=== PATIENT | female | born 1995 | race Two or more races ===

== ENCOUNTER 2024-04-26 12:28 | Inpatient (IN) | payer MEDICAID ==
[~2024-04-26] VITALS: Ht 157 cm; Wt 105.7 kg
[2024-04-26 10:36] LABS: Basophils # (auto) 0.1 10 ^3/uL (0-0.2); Basophils % (auto) 0.5 % (0.0-2.0); Eosinophils # (auto) 0.1 10 ^3/uL (0-0.8); Eosinophils % (auto) 0.6 % (0.0-7.0); Hematocrit 37.4 % (36.0-46.0); Hemoglobin 13.2 g/dL (12.2-16.2); Lymphocytes # (auto) 2.1 10 ^3/uL (0.4-5.4); Lymphocytes % (auto) 19.1 % (10.0-50.0); Mean Corpuscular Hgb Conc. 35.3 g/dL (32.0-36.0); Mean Corpuscular Volume 84.9 fL (80.0-100.0); Monocytes # (auto) 0.5 10 ^3/uL (0-1.3); Monocytes % (auto) 4.4 % (0.0-12.0); Neutrophils # (auto) 8.1 10 ^3/uL (1.6-8.6); Neutrophils % (auto) 75.4 % (37.0-80.0); Platelet Count (auto) 185 10^3/uL (140-450); Red Cell Distribution Width 13.5 % (11.8-14.3); White Blood Cell 10.7 10^3/uL (4.4-10.8)
[2024-04-26 10:50] LABS: Alkaline Phosphatase 111 U/L (46-116); Anion Gap 7 (5-15); Aspartate Aminotransferase 13 U/L (13-40); BUN/Creatinine Ratio 15.9 (10.0-20.0); Blood Urea Nitrogen 11 mg/dL (9-23); Calcium 9.5 mg/dL (8.7-10.4); Carbon Dioxide 21 mmol/L (20-31); Chloride 108 mmol/L (98-107); Glucose 75 mg/dL (74-106); Potassium 3.8 mmol/L (3.5-5.1); Sodium 136 mmol/L (136-145)
[2024-04-26 10:51] LABS: Albumin 3.9 g/dL (3.2-4.8); Bilirubin, Total 0.7 mg/dL (0.2-1.0)
[2024-04-26 11:19] LABS: Alanine Aminotransferase < 9 U/L (7-40)
[2024-04-26 11:26] LABS: Urine Bacteria FEW /hpf (None Seen); Urine Blood Negative /uL (Negative); Urine Clarity Turbid (Clear); Urine Color Yellow (Yellow); Urine Protein, UAD TRACE (Negative); Urine Specific Gravity 1.018 (1.001-1.035); Urine Urobilinogen Normal (Negative); Urine WBC 5 /hpf (0 - 5)
[2024-04-26 11:33] LABS: Amphetamine Screen, Urine Neg (NEGATIVE); Barbiturate Scree,Urine Neg (NEGATIVE); Benzodiazephine Screen, Urine Neg (NEGATIVE); Cannabinoid Screen, Urine Neg (NEGATIVE); Cocaine Screen, Urine Neg (NEGATIVE); Opiate Scree,Urine Neg (NEGATIVE); Phencyclidine Screen, Urine Neg (NEGATIVE)
[2024-04-27] VITALS (15 sets, daily range): BP systolic 106–135; BP diastolic 66–85; PULSE 18–94; RESP 11–20; TEMP 98.2–98.5; O2SAT 93–100
[2024-04-27] MEDS: LACTATED RINGER'S 1,000 ML IV ONE (06:03)
[2024-04-27] MEDS: LACTATED RINGER'S 1,000 ML IV SCH (06:03)
[2024-04-27 06:16] LABS: INR 1.07 (0.9-1.15); Prothrombin Time 11.3 sec (9.3-11.8)
[2024-04-27] MEDS ORDERED: SODIUM CITR/CITRIC ACID ORAL SOLN 30 ML PO SCH (06:30)
[2024-04-27] MEDS ORDERED: TETRACAINE 1% INJ 2 ML VIAL IJ ONE (07:22)
[2024-04-27] MEDS: ceFAZolin 2 GM/D5W50ml 50 ML IV ONE (07:23)
[2024-04-27] MEDS ORDERED: MORPHINE SULF PF 5 MG/10 ML VIAL ONE (07:27)
[2024-04-27] MEDS ORDERED: fentaNYL CITRATE 100 MCG/2 ML VL ONE (07:27)
[2024-04-27] MEDS ORDERED: MIDAZOLAM HCL 2MG/2ML 2ml VIAL (1mg/ml) ONE (07:28)
--- NOTE | 2024-04-27 07:29 | DVHHP ---
ADMIT DATE: 04/27/2024 CHIEF COMPLAINT: Scheduled repeat section with bilateral tubal ligation. HISTORY OF PRESENT ILLNESS: This is a 28-year-old female 3, para 2, estimated due date 05/04/2024. The patient is 39 weeks' gestation, history of 2 prior sections, desires repeat. The patient is requesting voluntary female sterilization. The patient denies any symptoms of labor. PAST MEDICAL HISTORY: Negative. PAST SURGICAL HISTORY: Two C-sections. MEDICATIONS: vitamins. ALLERGIES: No known drug allergies. SOCIAL HISTORY: She is . Denies any tobacco, alcohol or illicit drug use. FAMILY HISTORY: Negative and noncontributory. REVIEW OF SYSTEMS: Fourteen point review of systems is negative as otherwise stated in the HPI. PHYSICAL EXAMINATION: VITAL SIGNS: Stable. GENERAL: She is alert, appears her stated age. She is in no acute distress. HEENT: Normal. CARDIOVASCULAR: Regular rate and rhythm. PULMONARY: Clear to auscultation bilaterally. ABDOMEN: Gravid, soft, nontender, obese. EXTREMITIES: Without cyanosis or edema. PELVIC: Deferred. heart rate: Baseline 130s, moderate variability, no decelerations, [place], no contractions. DIAGNOSTIC FINDINGS: The patient is a Rh negative, rubella immune, hepatitis B negative, RPR negative, HIV negative. ASSESSMENT: * Term intrauterine 39 weeks, previous section x2, desires repeat. * Multiparity, requesting voluntary female sterilization. * Rh negative, unsensitized. PLAN: The patient will be admitted for routine repeat section with bilateral tubal ligation. The risks, benefits and alternatives to surgery have been discussed with the patient and informed consent has been obtained. Risk of sterilization including 1% failure rate discussed with the patient. She understands the procedure is permanent and nonreversible. DO JACKSON Soria TID: [id number] RECEIPT: [id number]
[2024-04-27] MEDS ORDERED: oxyTOCIN 10 UNIT/ML 10ML VIAL ONE (07:52)
[2024-04-27] MEDS ORDERED: ONDANSETRON HCL 4 MG/2 ML VIAL IV ONE (09:00)
[2024-04-27] MEDS ORDERED: NALOXONE HCL 0.4 MG/ML VIAL IV PRN (09:00)
[2024-04-27] MEDS ORDERED: hydrALAZINE HCL 20 MG/ML VL IV PRN (09:00)
[2024-04-27] MEDS ORDERED: DexAMETHasone SOD PHOS 10MG/1ML VIAL INJ IV PRN (09:00)
[2024-04-27] MEDS ORDERED: MIDAZOLAM HCL 2MG/2ML 2ml VIAL (1mg/ml) IV PRN (09:00)
[2024-04-27] MEDS ORDERED: ePHEDrine SULFATE 50 MG/ML AMP IV PRN (09:00)
[2024-04-27] MEDS ORDERED: ONDANSETRON HCL 4 MG/2 ML VIAL IV PRN (09:00)
[2024-04-27] MEDS ORDERED: HYDROmorphone HCL 2 MG/ML VL/or syr IV PRN (09:00)
--- NOTE | 2024-04-27 09:02 | DVHOP ---
DATE OF SURGERY: 04/27/2024 POSTOPERATIVE DIAGNOSES: * Term intrauterine 39 weeks. * Previous section x2, desires repeat. * Multiparity, requesting voluntary sterilization. FINAL DIAGNOSES: * Term intrauterine 39 weeks. * Previous section x2, desires repeat. * Multiparity, requesting voluntary sterilization. PROCEDURE PERFORMED: * Repeat low transverse section via Pfannenstiel skin incision. * Modified Castillo bilateral tubal ligation. SURGEON: Santosh Cassidy DO [employer] OPERATOR: Thiago Rowell NP TYPE OF ANESTHESIA: Spinal. ANESTHESIOLOGIST: Demario Salgado MD. DESCRIPTION OF FINDINGS: Delivery of a liveborn male infant, cephalic presentation, clear amniotic fluid, scores of 9 and 9, weight 7 pounds 0 ounces. Normal bilateral fallopian tubes, uterus and placenta. A single layer uterine closure. Minimal omental adhesions to anterior abdominal wall. TECHNICAL PROCEDURE: After informed consent was obtained, the patient was taken to the operating room where her spinal anesthesia was found to be adequate. She was placed in the supine position with a slight leftward tilt. She was sterilely prepped and draped in the usual sterile fashion. A Pfannenstiel skin incision was made through the prior scar. The incision was carried down sharply to the underlying layer of fascia and peritoneum. Entry into the peritoneal cavity was performed bluntly. The peritoneal incision was extended superiorly and inferiorly with good visualization of bladder and underlying organs. Omental adhesions were encountered that were divided with electrocautery. Next, the lower uterine segment was identified, it was incised in a low transverse fashion with the second scalpel and the incision extended laterally using digital technique. The amniotic membranes were ruptured. The fluid was slightly meconium tinged. The baby was delivered. After delivery of the infant, the nose and mouth were suctioned. The cord was clamped and cut after 60 seconds and the baby handed off to waiting pediatric team. Cord blood was obtained. The placenta was then manually removed. The uterus was exteriorized and cleared of all clots and debris using moist laparotomy sponges. The uterine incision was repaired with #1 PDS in continuous running locking fashion in a single layer. Excellent tissue approximation and hemostasis was obtained. Next, the left fallopian tube was found. It was traced to its fimbriated end. It was grasped at the mid isthmic portion with a Jack clamp and tied with 2 ties of 0 plain gut and a midsegment partial salpingectomy performed. The cut ends were cauterized. The procedure was repeated on the contralateral fallopian tube in similar fashion. Both left and right fallopian tube segments were submitted to pathology. There was no bleeding from the mesosalpinx. The uterus was returned to the abdomen. The cul-de-sac and pericolic gutters were cleared of all clots and debris. The abdomen was irrigated with sterile water. Hemostasis was confirmed. All instrumentation was removed from the patient's abdomen. We then proceeded to close the rectus fascia using #1 Stratafix symmetric suture in a continuous running fashion with 2 sutures meeting in the midline. Good tissue approximation was obtained. The subcutaneous tissue was irrigated. Bleeding points controlled with cautery. The subcutaneous tissue was closed with 2-0 plain gut and the skin was closed in subcuticular fashion using 3-0 Monocryl on a Joel needle. A silk dressing was then placed over the incision. INTRAOPERATIVE COMPLICATIONS: None. ESTIMATED BLOOD LOSS: 600 mL. POSTOPERATIVE CONDITION: Stable. SPECIMENS: Placenta, segments of left and right fallopian tubes. MEDICATIONS: The patient received 2 grams of Ancef prior to skin incision and IV Pitocin at the time of cord clamp. DO JACKSON Soria TID: [id number] RECEIPT: [id number]
[2024-04-27] MEDS: ACETAMINOPHEN IV 1000 MG/100ML (10MG/ML) IV PRN (15:19)
[2024-04-27] MEDS ORDERED: PHENYLEPHRINE HCL 10 MG/ML VL IV ONE (15:35)
[2024-04-27] MEDS: ceFAZolin 1GM/50ML 50 ML IV SCH (16:11)
[2024-04-27] MEDS: KETOROLAC TROMETH 30 MG/ML 1ML VIAL IV PRN (21:10)
[2024-04-28] VITALS (12 sets, daily range): BP systolic 103–126; BP diastolic 64–85; PULSE 61–76; RESP 14–18; TEMP 97.8–98.3; O2SAT 93–100
--- NOTE | 2024-04-28 00:30 | DVHPN2 ---
Progress Note Date Seen: Apr 28, 2024 Subjective POD#1 s/p RCS and BTL at 39 wk S: Doing well, No pain. Lochia mild. Tolerating regular diet. FLATUS+ vital signs Vital Sign Date Time Temp Pulse Resp B/P (MAP) Pulse Ox O2 Delivery O2 Flow Rate FiO2 04/28/24 00:00 66 18 96 04/27/24 23:00 98.2 122/78 (93) 98.2 04/27/24 19:00 Room Air 04/27/24 08:50 5.0 04/27/24 08:50 100 Total Intake and Output 04/27/24 04/27/24 04/28/24 15:00 23:00 07:00 Intake Total 1200 ml 325 ml Output Total 1000 ml 1225 ml 200 ml Balance -1000 ml -25 ml 125 ml medications Current Medications Medications Dose Ordered Sig/Alon Route Start Time Stop Time Status Last Admin Dose Admin Citric Acid/ Sodium Citrate 30 ml PC PO 04/27/24 06:30 Cancel Ondansetron HCl 4 mg Q4HP PRN IV 04/27/24 09:00 Cancel Acetaminophen 1,000 mg Q8HR PRN IV 04/27/24 10:30 04/28/24 06:01 04/28/24 00:22 1,000 MG Cefazolin Sodium 50 ml @ 100 mls/hr Q8H IV 04/27/24 15:00 04/28/24 07:29 04/27/24 23:44 100 MLS/HR Ketorolac Tromethamine 15 mg Q8HPRN PRN IV 04/27/24 13:00 05/02/24 12:59 04/27/24 21:10 15 MG laboratory and microbiology Laboratory Tests 04/26/24 10:04 Test 04/26/24 10:04 Range/Units Serum Glucose 75 74-106 mg/dL Objective O: AFVSS Chest: heart and lung sounds normal. Abd soft, non-tender, fundus firm, BS, no rebound or guarding, Incision - dressing and incision clean, dry, intact Ext Neg Homans, Non-tender, edema Lochia - minimal Labs Pending. Assessment/Plan POD#1 s/p RCS and BTL Doing well PLan: Continue Supportive care Check CBC Ambulate Pain control possible D/C tomorrow. Plan discussed with: Patient STEVENSON NOBLE DO Apr 28, 2024 00:30
[2024-04-28] MEDS ORDERED: IBUP-1456 PO (00:41)
[2024-04-28] MEDS ORDERED: HYDR1TAB97 PO (00:41)
[2024-04-28 03:03] LABS: Basophils # (auto) 0.1 10 ^3/uL (0-0.2); Basophils % (auto) 0.7 % (0.0-2.0); Eosinophils # (auto) 0.1 10 ^3/uL (0-0.8); Eosinophils % (auto) 1.4 % (0.0-7.0); Hematocrit 33.4 % (36.0-46.0); Hemoglobin 11.4 g/dL (12.2-16.2); Lymphocytes # (auto) 2.1 10 ^3/uL (0.4-5.4); Lymphocytes % (auto) 20.1 % (10.0-50.0); Mean Corpuscular Hemoglobin 29.1 pg (28.0-32.0); Mean Corpuscular Hgb Conc. 33.9 g/dL (32.0-36.0); Mean Corpuscular Volume 85.8 fL (80.0-100.0); Monocytes # (auto) 0.5 10 ^3/uL (0-1.3); Monocytes % (auto) 4.6 % (0.0-12.0); Neutrophils # (auto) 7.5 10 ^3/uL (1.6-8.6); Neutrophils % (auto) 73.2 % (37.0-80.0); Platelet Count (auto) 153 10^3/uL (140-450); Red Cell Distribution Width 13.7 % (11.8-14.3); White Blood Cell 10.3 10^3/uL (4.4-10.8)
[2024-04-28 07:06] LABS: RPR Non Reactive (Non Reactive)
[2024-04-28] MEDS ORDERED: BISACODYL 10 MG RECT SUPP PR PRN (07:45)
[2024-04-28] MEDS ORDERED: HYDROcodone-ACET 5/325MG TAB PO PRN ×2 (07:45)
[2024-04-28] MEDS ORDERED: DOCU-94 PO (07:50)
[2024-04-28] MEDS ORDERED: PREN-96 PO (07:50)
[2024-04-28] MEDS: DOCUSATE CALCIUM 240 MG CAP PO SCH (10:44)
[2024-04-28] MEDS: DOCUSATE SOD 100 MG CAP PO SCH (10:44)
[2024-04-28] MEDS: IBUPROFEN 800 MG TAB PO PRN (10:46)
[2024-04-28] MEDS: SIMETHICONE 80 MG CHEWABLE TABLET PO SCH (12:00)
[2024-04-29 03:30] VITALS: BP 117/82; PULSE 76; RESP 16; TEMP 98.4; O2SAT 97
--- NOTE | 2024-04-29 04:30 | DVHDS2 ---
Obstetrics Discharge Summary Obstetrics Discharge Summary Date of Admission: Apr 27, 2024 Date of Discharge: Apr 29, 2024 Reason For Admission: Section (Repeat, scheduled) Procedures: NST Intrapartum Procedures: (LTCS), Tubal Ligation (bilateral) Procedures: Antibiotics, Hct/date: (04/28/24), Hgb/date: (04/28/24) Operative Complicat: None Discharge Diagnosis: Term -Delivered Discharge Information: Activity (as tolerated, no heavy lifting and nothing in the vagina for 6 weeks), Diet (Routine), Medications (Rx sent), Instructions (Routine), Discharge to (Home), Accompanied by (partner), Discarge date (04/29/24) VASYL UGILLEN CNM Apr 29, 2024 04:30
--- NOTE | 2024-04-29 04:30 | DVHPN2 ---
Progress Note Date Seen: Apr 29, 2024 Subjective S: bleeding is less, eating food without issues, denies lightheaded/dizziness, pain well controlled with oral medications, no concerns with urinating, passing flatus, no BM yet, ambulating well, and formula vital signs Vital Sign Date Time Temp Pulse Resp B/P (MAP) Pulse Ox O2 Delivery O2 Flow Rate FiO2 04/28/24 23:30 98.3 69 16 120/81 (94) 99 98.3 04/28/24 18:30 Room Air 04/27/24 08:50 5.0 04/27/24 08:50 100 Total Intake and Output 04/28/24 04/28/24 04/29/24 15:00 23:00 07:00 Intake Total 600 ml Output Total 900 ml 1100 ml Balance -300 ml -1100 ml medications Current Medications Medications Dose Ordered Sig/Alon Route Start Time Stop Time Status Last Admin Dose Admin Citric Acid/ Sodium Citrate 30 ml PC PO 04/27/24 06:30 Cancel Ondansetron HCl 4 mg Q4HP PRN IV 04/27/24 09:00 Cancel Docusate Calcium 240 mg DAILY PO 04/28/24 10:00 04/28/24 10:44 240 MG Docusate Sodium 100 mg Q12HR PO 04/28/24 10:00 04/29/24 01:42 100 MG Dimethicone 80 mg QID PO 04/28/24 12:00 04/29/24 01:42 80 MG Bisacodyl 10 mg DAILYP PRN TX 04/28/24 07:45 Ibuprofen 800 mg Q8HP PRN PO 04/28/24 07:45 04/28/24 19:23 800 MG Acetaminophen/ Hydrocodone Bitart 1 tab Q4HPRN PRN PO 04/28/24 07:45 Acetaminophen/ Hydrocodone Bitart 2 tab Q4HPRN PRN PO 04/28/24 07:45 laboratory and microbiology Laboratory Tests 04/28/24 02:54 04/26/24 10:04 Test 04/26/24 10:04 Range/Units Serum Glucose 75 74-106 mg/dL Objective O: VSS Chest: heart sounds normal and lung sounds clear bilaterally Abd: soft, non-tender, fundus at U/firm/midline, active bowel sounds, no rebound or guarding Incision: sylke dressing open to air, clean/dry/intact, old sanguineous drainage spots noted Ext: Non-tender, No edema, 2+ BLE DTRs Lochia: minimal See lab results Problems(with codes): (1) S/P repeat low transverse (2) Precipitous drop in hematocrit Assessment/Plan A: 28yo now POD#2 s/p repeat and BTL Breast and formula Pain control with PO medications Bowel regimen P: D/C home today Rx sent to pharmacy precautions and preeclampsia warning signs reviewed F/U with [facility] office in 1 week Plan discussed with: Patient, Spouse VASYL GUILLEN CNM Apr 29, 2024 04:30
[2024-04-29 06:50] VITALS: BP 139/83; PULSE 72; RESP 16; TEMP 98.5; O2SAT 98
[2024-04-29 11:00] VITALS: BP 133/65; PULSE 79; RESP 16; TEMP 98.3; O2SAT 97
[2024-04-30 10:07] LABS: Treponema Pallidum Ab LC Non Reactive (Non Reactive)
== END 2024-04-29 15:36 | disposition home or self-care (01) | DRG 539 ==
LOC: LDRP 04-27 04:53
PROVIDERS: ADMIT Obstetrics & Gynecology; ATTEND Obstetrics & Gynecology
PROC: 0UB70ZZ Excision of Bilateral Fallopian Tubes, Open Approach (ICD-10-PCS; 2024-04-27)
PROC: 10D00Z1 Extraction of Products of Conception, Low, Open Approach (ICD-10-PCS; principal; 2024-04-27 07:35)
DX: O34.211 Maternal care for low transverse scar from previous cesarean delivery (principal); R71.0 Precipitous drop in hematocrit; Z30.2 Encounter for sterilization; Z3A.39 39 weeks gestation of pregnancy; Z37.0 Single live birth
CPT/HCPCS: 36415; 59025; 80053; 80307; 81001; 85025; 85610; 85730; 86592; 86703; 86705; 86780; 86803; 86850; 86900; 86901; 94760; 94762; 96360; 96361; 96365; 96366; 96374; G0378; J0131; J1885; J2250; J2590